=== PATIENT | female | born 2005 | race Caucasian/White ===

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

== ENCOUNTER 2024-04-19 12:07 | Emergency (ER) | payer MEDICAID, OTHER ==
[~2024-04-19] VITALS: Ht 170.2 cm; Wt 77.3 kg
[~2024-04-19 12:07] MED LIST: ALBU6.7H14 INH
[2024-04-19 12:15] VITALS: BP 12/56; PULSE 86; RESP 16; TEMP 98; O2SAT 97
== END 2024-04-19 15:14 | disposition home or self-care (01) ==
LOC: ER 12:07
DX: S92.901A Unspecified fracture of right foot, initial encounter for closed fracture (principal); F12.90 Cannabis use, unspecified, uncomplicated; Z79.899 Other long term (current) drug therapy; V89.2XXA Person injured in unspecified motor-vehicle accident, traffic, initial encounter; Y93.89 Activity, other specified; Y92.89 Other specified places as the place of occurrence of the external cause; Y99.8 Other external cause status
CPT/HCPCS: 73630; 99283; L4360